=== PATIENT | female | born 1995 | race Caucasian/White ===

== ENCOUNTER 2016-07-01 21:57 | Emergency (ER) | payer BC ==
[~2016-07-01] VITALS: Ht 180.3 cm; Wt 63.5 kg
--- NOTE | 2016-07-01 22:30 | Emergency Room Report ---
History of Present Illness General Chief Complaint: Neck Pain Source: Patient Present Illness HPI This is a 20-year-old female with no past medical history. She presents with chief complaint of neck pain and swelling. Also with problem with her right wrist. Denies any abdominal pain. About 5 weeks ago she had fever or chills. Her left and the back and neck were swollen. She went to urgent care and received antibiotics. Things did improve her neck she got worse and she went to the ER in [place]. She had blood work and CT scan of the neck. It showed that the lymph nodes were enlarged. She was recommended to stay overnight for IV antibiotics. She refused. She had followup with ENT who said that lymph node infection is better. Is told to finish the antibiotics. About 2 weeks ago she developed probable with her right wrist. She can't extend it. She cannot open her fingers. It is improving now. She seen a neurologist last week who said is probably a pinched nerve. Now she has not but no vomiting. No diarrhea. A family told her go to the ER because this may be residual infection. Allergies: Coded Allergies: No Known Allergies (Unverified , 07/01/16) Patient History Past Medical History: none, see triage record, old chart reviewed Past Surgical History: none Pertinent Family History: none Social History: Denies: smoking Last Menstrual Period: 06/28/16 Now: No Immunizations: other Reviewed Nursing Documentation: PMH: Agreed, PSxH: Agreed Nursing Documentation-PM Past Medical History: No Stated History Review of Systems Eye: Denies: blurred vision, eye pain ENT: Denies: ear pain, nose congestion, throat swelling Respiratory: Denies: cough, shortness of breath Cardiovascular: Denies: chest pain, palpitations Gastrointestinal: Denies: abdominal pain, diarrhea, nausea, vomiting Musculoskeletal: Denies: back pain, joint pain Skin: Denies: rash Neurological: Denies: headache, numbness Endocrine: Denies: increased thirst, increased urine Hematologic/Lymphatic: Denies: easy bruising All Other Systems: negative except mentioned in HPI Physical Exam Vital Signs Date Time Temp Pulse Resp B/P Pulse Ox O2 Delivery O2 Flow Rate FiO2 07/01/16 22:00 98.1 69 15 126/73 100 Room Air vitals normal Sp02 EP Interpretation: reviewed, normal General Appearance: well appearing, no apparent distress, alert Head: normocephalic, atraumatic Eyes: bilateral eye EOMI, bilateral eye PERRL ENT: hearing grossly normal, normal pharynx Neck: full range of motion, supple, no meningismus, other - She has right posterior cervical adenopathy. Nontender. Respiratory: chest non-tender, lungs clear, normal breath sounds Cardiovascular #1: regular rate, rhythm, no murmur Gastrointestinal: normal bowel sounds, non tender, no mass, no organomegaly, no bruit, non-distended Musculoskeletal: back normal, gait/station normal, normal range of motion, other - Right upper extremity: She had good function of the bicep and tricep. No problem with shoulder movement. No problem with pronation and supination. She has normal function of wrist flexion. Decreased function of wrist extension. 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 Sensation is normal however. pulses normal. Neurologic: alert, oriented x3 Psychiatric: mood/affect normal Skin: warm/dry Medical Decision Making Diagnostic Impression: Primary Impression: Cervical adenitis Additional Impression: Wrist drop, right wrist ER Course Patient presents with cervical adenopathy and adenitis. She did mention that she had tattoos of her upper chest/neck area few days prior to getting fever and left no edema. This may be secondary to that. She did improve somewhat with Levaquin. Will go ahead and start new course of antibiotics. She may need a biopsy. Her wrist drop is probably secondary to a brachial plexus palsy secondary to the large lymph node. I see no evidence of any abscess. We'll discharge home. I told her to call her ENT Dr. for followup. Lab Results Impression labs unremarkable CT/MRI/US Diagnostic Results CT/MRI/US Diagnostic Results : Imaging Test Ordered: CT neck Impression CT neck with IV contrast. This is read by radiologist. There is numerous nonspecific cervical lymph node bilaterally. Prominent deep to right sternocleidal mastoid muscle. Small amount of stranding is present along the course of these lymph nodes. Last Vital Signs Date Time Temp Pulse Resp B/P Pulse Ox O2 Delivery O2 Flow Rate FiO2 07/01/16 22:00 98.1 69 15 126/73 100 Room Air Status: improved Disposition: HOME, SELF-CARE Condition: Stable Scripts Ibuprofen* (MOTRIN*) 600 Mg Tablet 600 MG ORAL THREE TIMES A DAY, #30 TAB 0 Refills Prov: ЮЛИЯ DIA M.D. 07/02/16 Amoxicillin/Potassium Clav 875-125* (AUGMENTIN 875-125 TABLET*) 1 Each Tablet 1 TAB ORAL TWICE A DAY, #20 TAB Prov: ЮЛИЯ DIA M.D. 07/02/16 Additional Instructions: Followup with your DrRenzo in 2-3 days. Also call your ENT doctor for appointment. Return for increasing pain, fever, chills, or any concern. Take your labs and CT scan report with you to your ЮЛИЯ Sherwood M.D. Jul 01, 2016 22:30
[2016-07-01 22:48] LABS: EOSINOPHILS % (AUTO) 3.1 % (0.0-3.0); LYMPHOCYTES % (AUTO) 30.7 % (20.0-45.0); MEAN CORPUSCULAR HEMOGLOBIN 28.9 PG (27.0-31.0); MEAN CORPUSCULAR HGB CONC 30.8 G/DL (32.0-36.0); MEAN CORPUSCULAR VOLUME 94 FL (80-99); MEAN PLATELET VOLUME 6.9 FL (6.5-10.1); MONOCYTES % (AUTO) 4.9 % (1.0-10.0); NEUTROPHILS % (AUTO) 60.4 % (45.0-75.0); PLATELET COUNT 216 K/UL (150-450); RED BLOOD COUNT 5.35 M/UL (4.20-5.40); RED CELL DISTRIBUTION WIDTH 13.2 % (11.6-14.8); WHITE BLOOD COUNT 5.3 K/UL (4.8-10.8)
[2016-07-01 22:53] LABS: APPEARANCE,URINE CLEAR; KETONES,URINE NEGATIVE (NEGATIVE); LEUKOCYTE ESTERASE ,URINE NEGATIVE (NEGATIVE); NITRITE,URINE NEGATIVE (NEGATIVE); PH,URINE 8 (4.5-8.0); PROTEIN,URINE 2+ (NEGATIVE); UROBILINOGEN,URINE NORMAL MG/DL (0.0-1.0)
[2016-07-01 23:05] LABS: ANION GAP 17 (5-15); CALCIUM 10.6 mg/dL (8.6-10.2); CARBON DIOXIDE 27 mEQ/L (20-30); CHLORIDE 97 mEQ/L (98-107); CREATININE 0.8 mg/dL (0.5-0.9); GLOMERULAR FILTRATION RATE > 60 mL/min (>60); HEMOLYSIS 2; POTASSIUM 3.8 mEQ/L (3.4-4.9); SODIUM 141 mEQ/L (135-145)
[2016-07-01 23:15] VITALS: BP 122/75
[2016-07-01 23:48] LABS: BACTERIA,URINE FEW /HPF; RBC,URINE 30-40 /HPF (0 - 2); SQUAMOUS EPITHELIAL CELL,UR MODERATE /LPF (NONE/OCC); WBC,URINE 0-2 /HPF (0 - 2)
[2016-07-02] MEDS ORDERED: Augmentin 875mg Tab ORAL ONE (00:30)
[2016-07-02] MEDS ORDERED: AUGMENTIN 875-1 EAC1 ORAL (00:44)
[2016-07-02] MEDS ORDERED: IBUPROFEN600 MG ORAL (00:44)
[2016-07-02 00:50] VITALS: BP 118/72
--- NOTE | 2016-07-02 09:02 | Diagnostic Imaging Report ---
Indication: Neck pain. Technique: Continuous helical imaging of the neck was obtained transaxially from the skull base to the upper thoracic spine during intravenous administration of nonionic contrast. 2-D coronal and sagittal reformatted images were obtained. Total Dose length Product (DLP): [address] Dose Index Volume (CTDIvol): 8, 24, 18 mGy Comparison: None Findings: Multiple cervical nodes present bilaterally nonspecific. None of the nodes in short axis measure greater than 8 mm. There is no pharyngeal mucosal based mass identified. Parapharyngeal space and fat appear normal bilaterally. No abnormal fluid collections are demonstrated. The epiglottis, aryepiglottic folds, the level of the true and false cords, subglottic airway appear normal. The glands are unremarkable. Major vessels in the neck enhance normally. 2 mm nodule noted in the left upper lobe nonspecific. Impression: Multiple, small nodes within the neck bilaterally nonspecific but likely inflammatory. Followup and clinical correlation recommended. [facility] has communicated the preliminary results to the Emergency Department. Their findings are largely concordant with this report. The CT scanner at [facility] is accredited by the [employer] and the scans are performed using protocols designed to limit radiation exposure to as low as reasonably achievable to attain images of sufficient resolution adequate for diagnostic evaluation.
== END 2016-07-02 00:50 | disposition home or self-care (01) ==
LOC: EMR 22:16
DX: I88.9 Nonspecific lymphadenitis, unspecified (principal); M21.331 Wrist drop, right wrist
CPT/HCPCS: 36415; 70491; 80048; 81001; 81025; 85025; 96374; 99284; J2405; Q9967